=== PATIENT | male | born 1970 | race Caucasian/White ===

== ENCOUNTER 2018-10-05 13:19 | Outpatient (REF) | payer MEDICARE, MEDICAID, SELFPAY ==
[2018-10-05 22:12] LABS: Bilirubin Negative (Negative); Blood Negative (Negative); Clarity Clear; Glucose Negative (Negative); Ketones Negative (Negative); Leukocyte Esterase Small (Negative); Nitrite Negative (Negative); Urobilinogen 0.2 EU/dL (Up TO 0.2); pH 5.5 (5-8)
[2018-10-05 22:17] LABS: COMMENT (LAB VIEW ONLY) 143.07 mg/dL; Microalb ug/mg Crea 18.5 ug/mg Cr
[2018-10-05 22:30] LABS: Bacteria Negative HPF (Negative); C & S Indicated? Yes; Casts Negative LPF (Negative); Crystals Negative HPF (Negative); Epithelial Cells Few HPF (Negative); Mucus Negative (Negative); Other Cells Negative (Negative); WBC 20-50 HPF (0-5)
[2018-10-07 11:47] LABS: ALT 30 U/L (12-78); AST 21 U/L (15-37); Alkaline Phosphatase 80 U/L (46-116); Anion Gap 6.9 mmol/L (3-11); BUN 22 mg/dL (7-18); Bilirubin, Total 0.4 mg/dL (0.2-1.0); CO2 30.1 mmol/L (21.0-32.0); CREATININE 1.28 mg/dL (0.70-1.30); Calcium 9.4 mg/dL (8.5-10.1); Chloride 105 mmol/L (98-107); Cholesterol 144 mg/dL (50-200); Glucose 84 mg/dL (70-100); HDL Cholesterol 45 mg/dL (40-60); LDL CHOLESTEROL 86 mg/dL (<100); Potassium 5.1 mmol/L (3.5-5.1); Sodium 142 mmol/L (136-145); Total Protein 8.5 g/dL (6.4-8.2); Triglyceride 63 mg/dL (30-150)
== END 2018-10-05 13:39 ==
LOC: NCHCN 13:19
PROVIDERS: PCP Internal Medicine; Visit Provider Internal Medicine
DX: R82.79 Other abnormal findings on microbiological examination of urine (principal); R31.9 Hematuria, unspecified; R19.7 Diarrhea, unspecified; F34.81 Disruptive mood dysregulation disorder; F70 Mild intellectual disabilities; Z87.448 Personal history of other diseases of urinary system; F41.1 Generalized anxiety disorder; E66.9 Obesity, unspecified
CPT/HCPCS: 80053; 80061; 83721; 81003; 81015; 82043; 82570; 87086

== ENCOUNTER 2018-10-15 13:32 | Outpatient (CLI) | payer MEDICARE, MEDICAID, SELFPAY ==
[2018-10-15 13:56] LABS: Bilirubin Negative (Negative); Blood Trace-intact (Negative); Clarity Sl Cloudy; Glucose Negative (Negative); Ketones Negative (Negative); Leukocyte Esterase Small (Negative); Nitrite Negative (Negative); Urobilinogen 0.2 EU/dL (Up TO 0.2); pH 5.5 (5-8)
[2018-10-15 14:06] LABS: Bacteria Few HPF (Negative); C & S Indicated? Yes; Casts Negative LPF (Negative); Crystals Negative HPF (Negative); Epithelial Cells Moderate HPF (Negative); Mucus Trace (Negative); Other Cells Negative (Negative)
== END 2018-10-15 13:52 ==
PROVIDERS: PCP Internal Medicine; Visit Provider Internal Medicine
DX: R30.0 Dysuria (principal)
CPT/HCPCS: 81003; 81015; 87086

== ENCOUNTER 2018-10-15 13:43 | Outpatient (REF) | payer MEDICARE, MEDICAID, SELFPAY | END 2018-10-15 14:03 | LOC: LBN 13:43 | PROVIDERS: PCP Internal Medicine; Visit Provider Internal Medicine | DX: R19.7 Diarrhea, unspecified (principal); F70 Mild intellectual disabilities | CPT/HCPCS: 87329; 82272; 82710; 83630; 87324 ==

== ENCOUNTER 2018-11-03 15:03 | Emergency (ER) | payer MEDICARE, MEDICAID, SELFPAY ==
[2018-11-03 15:05] VITALS: BP 166/93; PULSE 80; RESP 16; TEMP 37.2; O2SAT 97
--- NOTE | 2018-11-03 15:09 | DI.RAD_ITS ---
SYMPTOM/DIAGNOSIS: RT ANKLE LIZ, ? FX,. Pain RIGHT ANKLE: Three views were obtained. There is marked soft tissue swelling adjacent to the medial malleolus and there is a probable mildly displaced fracture of the tip of the medial malleolus. The ankle mortise appears well maintained. No other fracture is seen.
[2018-11-03] MEDS: Acetaminophen 500 MG TAB 1000 MG PO (15:21)
[2018-11-03] MEDS: Ibuprofen 800 MG TAB PO (15:21)
--- NOTE | 2018-11-03 15:39 | W.ED.GENAD ---
Discharge Plan Disposition Patient Disposition: HOME Condition: Good Discharge Details Chief Complaint: Orthopedic Clinical Impression: Ankle fracture, right Primary Care Provider: Adilson Chaney ED Provider: Chris Munguia Home Meds and New Rx's Prescriptions: No Action multivitamin,[id number] [Multilex-T and M] 1 EACH tablet 1 tab PO DAILY RF: 0 buspirone 5 MG tablet 5 mg PO QAM RF: 0 prednisone 20 MG tablet 40 mg PO DAILY Qty: 10 RF: 0 diphenhydramine HCl 25 MG capsule 25 mg PO BID PRN PRNQty: 20 RF: 0 Discharge Instructions Instructions: Ankle Fracture (ED) Additional Instructions: There is a small fracture at the distal tip of your ankle bone. Please use Tylenol and Motrin as needed for pain control. Please keep the walking boot on at all times, do not apply any weight to the foot. Use your crutches. Take Tylenol and Motrin as needed for pain. Please try to ice your ankle multiple times throughout the day. If you notice any worsening of your symptoms, or any new symptoms such as vomiting, diarrhea, fever, chills, shortness of breath, chest pain, numbness, weakness, or fainting , please return immediately to the emergency department for reevaluation. Please follow up with your primary care provider as soon as possible for reassessment and reevaluation. As always, it was a pleasure participating in your medical care today. Referrals: Adilson Chaney MD [Primary Care Provider] - Medical Decision Making This is a pleasant 47-year-old male who presents today for right ankle injury. He injured it yesterday but did a significant amount of walking on it today. Exam demonstrates notable swelling in his right ankle. Normal neurovascular exam. X-ray reveals small fracture at the distal tip of the medial aspect of the tibia. No other significant abnormality. Ankle mortise is intact. We we will place the patient in a walking boot, but maintain that he remains nonweightbearing. He has given crutches for home use, recommend continue Tylenol Motrin and close follow-up with Dr. Chaney. If his symptoms do not improve over the next 1 to 2 weeks with conservative therapy he may need orthopedic referral by his PCP. I have extensively reviewed the treatment plan and discharge instructions with the patient and their family. I have addressed all patient concerns at this time. The patient and family was made aware of what symptoms to monitor for that would warrant a return to the emergency department. Discussed the plan with the patient and family, they demonstrate verbal understanding and agreement with our assessment and plan at this time. HPI General Date/Time Provider Initiated Documentation: 11/03/18 15:05. HPI Narrative: This is a 47-year-old male with no significant past medical history who presents today for evaluation of ankle pain. Patient states that yesterday he had twisted his right ankle while walking, and some mild pain on the medial and lateral aspect. However today he did a significant amount of walking with some friends, and had notable worsening of the swelling and pain in his ankle. He denies hearing any pop or crack. He denies any previous injury to the area. He denies any associated numbness or tingling, no pain in his knee. Or mid-tibia or fibula. No other complaints at this time. No other modifying factors. Related Data Home Medications Medication Instructions Recorded Confirmed multivitamin,[id number]-[id number] 1 tab PO DAILY 10/02/12 07/29/14 [Tshaeogh-R-F with Minerals] buspirone 5 mg PO QAM 07/29/14 07/29/14 diphenhydramine HCl 25 mg PO BID PRN PRN #20 cap 07/29/14 prednisone 40 mg PO DAILY #10 tablet 07/29/14 Previous Rx's Medication Instructions Recorded diphenhydramine HCl 25 mg PO BID PRN PRN #20 cap 07/29/14 prednisone 40 mg PO DAILY #10 tablet 07/29/14 Allergies Allergy/AdvReac Type Severity Reaction Status Date / Time No Known Allergies Allergy Unverified 11/03/18 15:09 General Stated Complaint: Orthopedic GALO: 4 Review of Systems Review of Systems All systems reviewed & are unremarkable except as noted in HPI and below PFSH Social History Smoking/Tobacco Use Status: Never Drug use: Never Do you feel safe at home: Yes Do you feel safe in your relationship?: Yes Exam Narrative Exam Narrative: 1.Const: Well-nourished, Well-developed, appearing stated age 2.Eyes: PERRL, no conjunctival injection, and symmetrical lids. 3.ENT: Atraumatic external nose and ears. Moist MM. Neck: Symmetric, trachea midline, No thyromegaly. 4.CVS: +S1/S2, No murmurs or gallops. Peripheral pulses 2+ and equal in all extremities. Brisk capillary refill in all extremities. 5.RESP: Unlabored respiratory effort. Clear to auscultation bilaterally. No wheezes rales or rhonchi 6.GI: Soft, Nontender/Nondistended, No hepatosplenomegaly. No guarding or rebound. 7.MSK: Patient's right ankle demonstrates notable swelling over the medial and lateral aspect. Pain on palpation over both aspects. Swelling is notably significant and makes exam slightly difficult. There appears to be no gross laxity of the joint with pronation supination flexion and extension however exam is limited secondary to the swelling. Sensation is intact throughout, dorsalis pedis +2 bilaterally, brisk capillary refill, good movement of all the toes. 8.Skin: Warm, Dry. No rashes or lesions. 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 Sensation grossly intact, no focal neurologic deficits. 10.Psych: (AAO) x3. Appropriate mood and affect Course Vital Signs Temperature 37.2 C 11/03/18 15:05 Pulse 80 11/03/18 15:05 Respiratory Rate 16 11/03/18 15:05 Blood Pressure 166/93 H 11/03/18 15:05 Pulse Oximetry 97 11/03/18 15:05 Temperature 37.2 C 11/03/18 15:05 Temperature Source Temporal Artery Scan 11/03/18 15:05 Pulse 80 11/03/18 15:05 Respiratory Rate 16 11/03/18 15:05 Respiratory Effort Non-Labored 11/03/18 15:07 Blood Pressure 166/93 H 11/03/18 15:05 Blood Pressure Position Sitting 11/03/18 15:05 Pulse Oximetry 97 11/03/18 15:05 Oxygen Delivery Method Room Air 11/03/18 15:05 Oxygen Flow Rate 0 11/03/18 15:05 Pain Level 1 11/03/18 15:21
--- NOTE | 2018-11-03 16:08 | ED.GENADUL_ITS ---
Discharge Plan Disposition Patient Disposition: HOME Condition: Good Discharge Details Chief Complaint: Orthopedic Clinical Impression: Ankle fracture, right Primary Care Provider: Adilson Chaney ED Provider: Chris Munguia Home Meds and New Rx's Prescriptions: No Action multivitamin,[id number] [Multilex-T and M] 1 EACH tablet 1 tab PO DAILY RF: 0 buspirone 5 MG tablet 5 mg PO QAM RF: 0 prednisone 20 MG tablet 40 mg PO DAILY Qty: 10 RF: 0 diphenhydramine HCl 25 MG capsule 25 mg PO BID PRN PRNQty: 20 RF: 0 Discharge Instructions Instructions: Ankle Fracture (ED) Additional Instructions: There is a small fracture at the distal tip of your ankle bone. Please use Tylenol and Motrin as needed for pain control. Please keep the walking boot on at all times, do not apply any weight to the foot. Use your crutches. Take Tylenol and Motrin as needed for pain. Please try to ice your ankle multiple times throughout the day. If you notice any worsening of your symptoms, or any new symptoms such as vomiting, diarrhea, fever, chills, shortness of breath, chest pain, numbness, weakness, or fainting , please return immediately to the emergency department for reevaluation. Please follow up with your primary care provider as soon as possible for reassessment and reevaluation. As always, it was a pleasure participating in your medical care today. Referrals: Adilson Chaney MD [Primary Care Provider] - Medical Decision Making This is a pleasant 47-year-old male who presents today for right ankle injury. He injured it yesterday but did a significant amount of walking on it today. Exam demonstrates notable swelling in his right ankle. Normal neurovascular exam. X-ray reveals small fracture at the distal tip of the medial aspect of the tibia. No other significant abnormality. Ankle mortise is intact. We we will place the patient in a walking boot, but maintain that he remains nonweightbearing. He has given crutches for home use, recommend continue Tylenol Motrin and close follow-up with Dr. Chaney. If his symptoms do not improve over the next 1 to 2 weeks with conservative therapy he may need orthopedic referral by his PCP. I have extensively reviewed the treatment plan and discharge instructions with the patient and their family. I have addressed all patient concerns at this time. The patient and family was made aware of what symptoms to monitor for that would warrant a return to the emergency department. Discussed the plan with the patient and family, they demonstrate verbal understanding and agreement with our assessment and plan at this time. HPI General Date/Time Provider Initiated Documentation: 11/03/18 15:05 . HPI Narrative: This is a 47-year-old male with no significant past medical history who presents today for evaluation of ankle pain. Patient states that yesterday he had twisted his right ankle while walking, and some mild pain on the medial and lateral aspect. However today he did a significant amount of walking with some friends, and had notable worsening of the swelling and pain in his ankle. He denies hearing any pop or crack. He denies any previous injury to the area. He denies any associated numbness or tingling, no pain in his knee. Or mid- tibia or fibula. No other complaints at this time. No other modifying factors. Related Data Home Medications Medication Instructions Recorded Confirmed multivitamin,[id number] 1 tab PO DAILY 10/02/12 07/29/14 [Hkyaumso-Q-Y with Minerals] buspirone 5 mg PO QAM 07/29/14 07/29/14 diphenhydramine HCl 25 mg PO BID PRN PRN #20 cap 07/29/14 prednisone 40 mg PO DAILY #10 tablet 07/29/14 Previous Rx's Medication Instructions Recorded diphenhydramine HCl 25 mg PO BID PRN PRN #20 cap 07/29/14 prednisone 40 mg PO DAILY #10 tablet 07/29/14 Allergies Allergy/AdvReac Type Severity Reaction Status Date / Time No Known Allergies Allergy Unverified 11/03/18 15:09 General Stated Complaint: Orthopedic GALO: 4 Review of Systems Review of Systems All systems reviewed & are unremarkable except as noted in HPI and below PFSH Social History Smoking/Tobacco Use Status: Never Drug use: Never Do you feel safe at home: Yes Do you feel safe in your relationship?: Yes Exam Narrative Exam Narrative: 1.Const: Well-nourished, Well-developed, appearing stated age 2.Eyes: PERRL, no conjunctival injection, and symmetrical lids. 3.ENT: Atraumatic external nose and ears. Moist MM. Neck: Symmetric, trachea midline, No thyromegaly. 4.CVS: +S1/S2, No murmurs or gallops. Peripheral pulses 2+ and equal in all extremities. Brisk capillary refill in all extremities. 5.RESP: Unlabored respiratory effort. Clear to auscultation bilaterally. No wheezes rales or rhonchi 6.GI: Soft, Nontender/Nondistended, No hepatosplenomegaly. No guarding or rebound. 7.MSK: Patient's right ankle demonstrates notable swelling over the medial and lateral aspect. Pain on palpation over both aspects. Swelling is notably significant and makes exam slightly difficult. There appears to be no gross laxity of the joint with pronation supination flexion and extension however exam is limited secondary to the swelling. Sensation is intact throughout, dorsalis pedis +2 bilaterally, brisk capillary refill, good movement of all the toes. 8.Skin: Warm, Dry. No rashes or lesions. 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 Sensation grossly intact, no focal neurologic deficits. 10.Psych: (AAO) x3. Appropriate mood and affect Course Vital Signs Temperature 37.2 C 11/03/18 15:05 Pulse 80 11/03/18 15:05 Respiratory Rate 16 11/03/18 15:05 Blood Pressure 166/93 H 11/03/18 15:05 Pulse Oximetry 97 11/03/18 15:05 Temperature 37.2 C 11/03/18 15:05 Temperature Source Temporal Artery Scan 11/03/18 15:05 Pulse 80 11/03/18 15:05 Respiratory Rate 16 11/03/18 15:05 Respiratory Effort Non-Labored 11/03/18 15:07 Blood Pressure 166/93 H 11/03/18 15:05 Blood Pressure Position Sitting 11/03/18 15:05 Pulse Oximetry 97 11/03/18 15:05 Oxygen Delivery Method Room Air 11/03/18 15:05 Oxygen Flow Rate 0 11/03/18 15:05 Pain Level 1 11/03/18 15:21
== END 2018-11-03 15:32 | disposition home or self-care (01) ==
LOC: ER 15:49
PROVIDERS: Emergency Provider Student in an Organized Health Care Education/Training Program; PCP Internal Medicine
DX: S82.892A Other fracture of left lower leg, initial encounter for closed fracture (principal); W18.49XA Other slipping, tripping and stumbling without falling, initial encounter
CPT/HCPCS: 29515; 99283; 73610; 99282; E0114; L4361

== ENCOUNTER → 2022-09-18 08:53 | Outpatient (BNVA) | payer MEDICARE, MEDICAID, SELFPAY | PROVIDERS: PCP Registered Nurse; Referring Provider Registered Nurse; Visit Provider Nurse Practitioner Gerontology | DX: R35.0 Frequency of micturition (principal); R39.15 Urgency of urination | CPT/HCPCS: 36415; 51798; 81003; 99204 ==

== ENCOUNTER 2022-09-18 09:30 | Outpatient (REF) | payer MEDICARE, MEDICAID, SELFPAY ==
[2022-09-19 09:14] LABS: PSA, Diagnostic 1.6 ng/mL (<=3.5)
== END 2022-09-18 09:31 | disposition home or self-care (01) ==
LOC: LBN 09:30
PROVIDERS: PCP Registered Nurse; Visit Provider Nurse Practitioner Gerontology
DX: R35.0 Frequency of micturition (principal); R32 Unspecified urinary incontinence
CPT/HCPCS: 84153

== ENCOUNTER → 2024-10-06 10:07 | Outpatient (BNVA) | payer MEDICARE, MEDICAID, SELFPAY | PROVIDERS: PCP Registered Nurse; Referring Provider Registered Nurse; Visit Provider Podiatrist | DX: M79.671 Pain in right foot (principal); M79.672 Pain in left foot; L84 Corns and callosities; E11.9 Type 2 diabetes mellitus without complications; R60.0 Localized edema; I83.93 Asymptomatic varicose veins of bilateral lower extremities; L65.9 Nonscarring hair loss, unspecified; L60.2 Onychogryphosis; L85.8 Other specified epidermal thickening; I87.2 Venous insufficiency (chronic) (peripheral); B35.1 Tinea unguium; N18.9 Chronic kidney disease, unspecified; Z86.711 Personal history of pulmonary embolism | CPT/HCPCS: 99214 ==

== ENCOUNTER → 2025-02-09 10:03 | Outpatient (BNVA) | payer MEDICARE, MEDICAID, SELFPAY | PROVIDERS: PCP Registered Nurse; Referring Provider Registered Nurse; Visit Provider Podiatrist | DX: B35.1 Tinea unguium (principal); L84 Corns and callosities; E11.9 Type 2 diabetes mellitus without complications; I87.2 Venous insufficiency (chronic) (peripheral); R61 Generalized hyperhidrosis | CPT/HCPCS: 99213 ==